=== PATIENT | female | born 1995 | race Two or more races ===

== ENCOUNTER 2022-05-17 12:08 | Inpatient (IN) | payer MEDICAID, OTHER ==
[~2022-05-17] VITALS: Ht 160 cm; Wt 42.5 kg
[2022-05-17] MEDS ORDERED: LACTATED RINGER'S 1,000 ML IV ONE (13:30)
[2022-05-17] MEDS ORDERED: ACETAMINOPHEN 325 MG TAB PO ONE (13:30)
[2022-05-17 19:39] LABS: Basophils # (auto) 0.2 10 ^3/uL (0-0.2); Basophils % (auto) 2.4 % (0.0-2.0); Eosinophils # (auto) 0 10 ^3/uL (0-0.8); Eosinophils % (auto) 0.1 % (0.0-7.0); Hemoglobin 13.9 g/dL (12.2-16.2); Lymphocytes # (auto) 0.9 10 ^3/uL (0.4-5.4); Lymphocytes % (auto) 10.1 % (10.0-50.0); Mean Corpuscular Hemoglobin 30.5 pg (28.0-32.0); Mean Corpuscular Hgb Conc. 33.1 g/dL (32.0-36.0); Mean Corpuscular Volume 91.9 fL (80.0-100.0); Monocytes % (auto) 11.5 % (0.0-12.0); Neutrophils # (auto) 6.4 10 ^3/uL (1.6-8.6); Neutrophils % (auto) 75.9 % (37.0-80.0); Red Blood Cells 4.57 10^6/uL (4.0-5.20); Red Cell Distribution Width 13.3 % (11.8-14.3); White Blood Cell 8.4 10^3/uL (4.4-10.8)
[2022-05-17 19:54] LABS: Albumin 4.1 g/dL (3.4-5.0); BUN/Creatinine Ratio 16.9; Calcium 8.8 mg/dL (8.5-10.1); Magnesium 2.5 mg/dL (1.6-2.6); Potassium 3.8 mmol/L (3.5-5.1)
[2022-05-17 19:57] LABS: Bilirubin, Total 0.3 mg/dL (0.2-1.0); Total Protein 8.1 g/dL (6.4-8.2)
[2022-05-17] MEDS ORDERED: ONDANSETRON HCL 4 MG/2 ML VIAL IV ONE (21:30)
[2022-05-17] MEDS ORDERED: LORazepam 2MG/ML-1ML VIAL IV ONE (21:30)
[2022-05-17] MEDS ORDERED: IOHEXOL 350 MG/ML 100ML IJ ONE (21:48)
[2022-05-17] MEDS ORDERED: METOCLOPRAMIDE HCL 5MG/ml INJ 2ml VIAL IV ONE (22:45)
[2022-05-18 01:13] LABS: Urine Bacteria NONE SEEN /hpf (None Seen); Urine Blood 1+ /uL (Negative); Urine Mucus FEW (None Seen); Urine Specific Gravity 1.026 (1.001-1.035); Urine WBC 2 /hpf (0 - 5)
[2022-05-18] MEDS ORDERED: LORazepam 2MG/ML-1ML VIAL ONE (01:13)
[2022-05-18] MEDS ORDERED: ACETAMINOPHEN 325 MG TAB PO PRN (02:45)
[2022-05-18] MEDS ORDERED: MORPHINE SULFATE INJ 2 MG/ml SYRG IV PRN (02:45)
[2022-05-18] MEDS ORDERED: ONDANSETRON HCL 4 MG/2 ML VIAL IV PRN (02:45)
[2022-05-18] MEDS ORDERED: NITROGLYCERIN 0.4 MG SL TAB SL PRN (02:45)
[2022-05-18] MEDS ORDERED: SODIUM CHLORIDE 0.9% 500 ML IV ONE (03:00)
[2022-05-18] MEDS ORDERED: PANTOPRAZOLE 40 MG TAB PO SCH (10:00)
[2022-05-18] MEDS ORDERED: OSELTAMIVIR 75 MG CAP PO SCH (10:00)
[2022-05-18 10:12] VITALS: BP 100/65
[2022-05-18] MEDS ORDERED: FLEET ENEMA(ADULT) 135 ML PR ONE (11:30)
[2022-05-18] MEDS ORDERED: SENNA 8.6 MG TAB PO PRN (11:30)
[2022-05-18] MEDS ORDERED: POLYETHYLENE GLYCOL 17 GM PWDR PO ONE (11:30)
[2022-05-18] MEDS ORDERED: SENNA 8.6 MG TAB PO ONE (11:30)
[2022-05-18 13:00] VITALS: BP 128/74
[2022-05-18] MEDS ORDERED: TAMIFLU PO (15:23)
[2022-05-18 16:50] VITALS: BP 101/70
[2022-05-18] MEDS ORDERED: POLYETHYLENE GLYCOL 17 GM PWDR PO SCH (22:00)
== END 2022-05-18 17:15 | disposition home or self-care (01) | DRG 113 ==
LOC: ER 12:08 → TELE 05-18 02:38 → TELE-EAST 05-18 08:50
PROVIDERS: ADMIT Nurse Practitioner; ATTEND Student in an Organized Health Care Education/Training Program
DX: J11.1 Influenza due to unidentified influenza virus with other respiratory manifestations (principal); E86.0 Dehydration; F84.0 Autistic disorder; R00.0 Tachycardia, unspecified; Z20.822 Contact with and (suspected) exposure to COVID-19
CPT/HCPCS: 36415; 71046; 71260; 74177; 80053; 81001; 83605; 83735; 83880; 84443; 84484; 84702; 85025; 85379; 87426; 87804; 87807; 96360; G0378

== ENCOUNTER 2024-01-02 15:39 | Emergency (ER) | payer OTHER ==
[~2024-01-02] VITALS: Ht 152.4 cm; Wt 45.6 kg
[~2024-01-02 15:39] MED LIST: TAMIFLU PO
[2024-01-02 18:25] VITALS: BP 123/75; PULSE 99; RESP 16; TEMP 99.5; O2SAT 99
[2024-01-02] MEDS ORDERED: AMOX875T4 PO (18:53)
[2024-01-02] MEDS ORDERED: IBUP-2008 PO (18:53)
[2024-01-02] MEDS: ACETAMINOPHEN 650 mg PER 20.3 mL UD PO ONE (18:58)
[2024-01-02] MEDS: BENZOCAINE (DENTAL) 20 % SPRAY 60ML MT ONE (18:58)
== END 2024-01-02 19:05 | disposition home or self-care (01) ==
LOC: ER 15:39
DX: K04.7 Periapical abscess without sinus (principal); Z98.890 Other specified postprocedural states; Z79.899 Other long term (current) drug therapy